=== PATIENT | male | born 1985 | race Caucasian/White ===

== ENCOUNTER 2024-12-18 18:11 | Emergency (ER) | payer SELFPAY ==
[~2024-12-18] VITALS: Ht 165.1 cm; Wt 70.0 kg
[2024-12-18 18:19] VITALS: O2SAT 100
[2024-12-18] MEDS ORDERED: CYCL10TA21 MT (19:48)
[2024-12-18] MEDS ORDERED: CELE100C MT (19:48)
[2024-12-18] MEDS: CYCLOBENZAPRINE 10MG TABLET PO STA (20:15)
[2024-12-18] MEDS: IBUPROFEN 800MG TABLET PO STA (20:16)
[2024-12-18 20:20] VITALS: BP 120/74; PULSE 59; RESP 13; TEMP 36.5; O2SAT 100
== END 2024-12-18 20:21 | disposition home or self-care (01) ==
LOC: ER 18:11
DX: S16.1XXA Strain of muscle, fascia and tendon at neck level, initial encounter (principal); S80.12XA Contusion of left lower leg, initial encounter; V43.62XA Car passenger injured in collision with other type car in traffic accident, initial encounter; Y93.89 Activity, other specified; Y92.89 Other specified places as the place of occurrence of the external cause; Y99.8 Other external cause status
CPT/HCPCS: 99283